=== PATIENT | male | born 1985 | race Caucasian/White ===

== ENCOUNTER → 2016-10-08 | Outpatient (CLI) | payer OTHER ==
[~2016-10-08] MED LIST: ALBUAER INH; AMT50 PO; AZEL0.15 NAE; GABA-113 PO; LIDO1PAD TOP
--- NOTE | 2016-10-08 09:44 | DIAGNOSTIC IMAGING REPORT ---
MRI LUMBAR SPINE W/O CONTRAST CLINICAL HISTORY: Low back pain with left leg radiculopathy. TECHNIQUE: Sagittal and axial T1, T2 and STIR images were obtained. COMPARISON STUDY: No previous studies for comparison. OBSERVATIONS: The vertebral bodies and posterior elements appear intact. There is no abnormal bony signal present to suggest a marrow replacement process. There is a small focus of decreased T1 and T2 signal involving the T12 vertebral body posteriorly. This is not felt to be of acute clinical significance. L1-2: No disc protrusions or extrusions. No evidence of spinal canal or neural foraminal compromise. L2-3: No disc protrusions or extrusions. No evidence of spinal canal or neural foraminal compromise. L3-4: No disc protrusions or extrusions. No evidence of spinal canal or neural foraminal compromise. L4-5: No disc protrusions or extrusions. No evidence of spinal canal or neural foraminal compromise. L5-S1: There is a small central disc protrusion. There is no significant thecal sac distortion. There is no foraminal stenosis. The conus medullaris and cauda equina appear normal. IMPRESSION: Small central disc protrusion at the L5-S1 level. Electronically signed by: Blue Stinson M.D. 10/08/2016 9:43 AM Dictated Date/Time: 10/08/2016 9:39 AM
== END | disposition home or self-care (01) ==
LOC: C.MRIBC 08:45
PROVIDERS: ATTEND Physical Medicine & Rehabilitation
DX: M54.10 Radiculopathy, site unspecified (principal); M51.27 Other intervertebral disc displacement, lumbosacral region

== ENCOUNTER → 2017-02-11 | Outpatient (CLI) | payer OTHER ==
--- NOTE | 2017-02-11 15:13 | DIAGNOSTIC IMAGING REPORT ---
FUSION CT SINUSES W/O HISTORY: R51 Headache. Several year history of nasal congestion refractory TECHNIQUE: Multiaxial CT images of the sinuses were performed and reformatted in the coronal plane without the use of intravenous contrast. Fusion sinus protocol was also obtained. COMPARISON STUDY: None. FINDINGS: The frontal sinuses and mastoid air cells are clear. Mild mucosal thickening within the sphenoid sinuses anteriorly. Mild mucosal thickening within the ethmoid air cells with partial opacification of a a few of the anterior ethmoid air cells. Mild right and moderate left polypoid mucosal thickening within the floors of the bilateral maxillary sinuses. No fluid levels within the paranasal sinuses. Mild rightward nasal septal deviation. Deformity of the nasal bones is consistent with an old, healed fracture. The orbits are unremarkable. The visualized brain is within normal limits. Bilateral ostiomeatal units are opacified. The orbital floors and lamina papyracea are intact. IMPRESSION: 1. [id number] mucosal thickening within the paranasal sinuses as described above. 2. Opacification of the bilateral ostiomeatal units. 3. No fluid levels within the paranasal sinuses. 4. Mild right nasal septal deviation. Electronically signed by: Jose Luis Stevens M.D. 02/11/2017 3:12 PM Dictated Date/Time: 02/11/2017 3:06 PM
== END | disposition home or self-care (01) ==
LOC: C.CTS 14:19
PROVIDERS: ATTEND Physician Assistant
DX: R51 Headache (principal); J34.9 Unspecified disorder of nose and nasal sinuses

== ENCOUNTER 2017-08-25 23:46 | Emergency (ER) | payer OTHER ==
[~2017-08-25] VITALS: Ht 172.7 cm; Wt 90.3 kg
[2017-08-25 23:51] VITALS: TEMP 36.6; Ht 172.7 cm; Wt 90.3 kg
[2017-08-25] MEDS ORDERED: IBUPROFEN 600 MG TAB PO STA (23:59)
[2017-08-26 02:18] VITALS: BP 122/71; PULSE 65; O2SAT 97
--- NOTE | 2017-08-26 02:47 | EMERGENCY ROOM VISIT NOTE ---
History First contact with patient: 23:55 Chief Complaint: ANKLE PAIN Stated Complaint: PAIN IN THE ANKLE MOVING UP LEG History of Present Illness The patient is a 32 year old male who presents to the Emergency Room with complaints of right ankle pain and swelling that has been reading up his leg for the past day. Patient had prior surgery to his left ankle. Dr. Aly did the surgery. This was a few years ago. No new injury. Patient is concerned he might have a blood clot. He states he noticed some swelling to the lateral ankle that is somewhat dissipated today. It is somewhat painful to walk on. Patient denies foot pain, lane pain, numbness, tingling, chest pain, dyspnea. No recent travel. No history of blood clots. Review of Systems An 10 system review of systems was completed with positives and pertinent negatives listed in the HPI. Past Medical/Surgical History Medical Problems: (1) Asthma Surgical Problems: (1) Male circumcision Family History Patient reports no known family medical history. Social History Smoking Status: Never Smoker Alcohol Use: none Drug Use: none Marital Status: in relationship Housing Status: lives with family Occupation Status: employed Current/Historical Medications Scheduled PRN Albuterol (Proventil Hfa), 2 PUFFS INH Q4 PRN for SOB/Wheezing Physical Exam Vital Signs Date Time Temp Pulse Resp B/P (MAP) Pulse Ox O2 Delivery O2 Flow Rate FiO2 08/26/17 02:18 65 18 122/71 97 08/26/17 01:51 47 18 120/52 95 Room Air 08/25/17 23:51 36.6 68 18 132/76 98 Room Air Physical Exam VITALS: Vitals are noted on the nurse's note and reviewed by myself. Vital signs stable. GENERAL: Pleasant male anxious appearing, in no acute distress, nondiaphoretic, well-developed well-nourished. SKIN: Capillary reflex less than 2 seconds. HEENT: Normocephalic. PERRLA. EOMI. Nares patent. Mucous membranes moist. Neck is supple without nuchal rigidity. HEART: Regular rate and rhythm without murmurs gallops or rubs. LUNGS: Clear to auscultation bilaterally without wheezes, rales or rhonchi. No retractions or accessory muscle use. MUSCULOSKELETAL: No gross musculoskeletal defects. No pedal edema. No calf tenderness. The left ankle is not swollen and is minimally tender over the lateral malleolus, but the skin is intact and there is no ligamentous instability. There is no fifth metatarsal tenderness. There is no tenderness over the rest of the foot. There is no calf or tibia/fibular tenderness. There is no visual deformity. The foot and toes are warm and well-perfused. Dorsalis pedis pulse 2+. Sensation to pain and light touch is intact. Capillary refill less than 3 seconds. NEURO: Patient was alert and oriented to person place and time. Normal sensation to light and sharp touch. No focal neurological deficits. Medical Decision & Procedures Medications Administered Medications (Trade) Dose Ordered Sig/Júnior Route Start Time Stop Time Status Last Admin Dose Admin Ibuprofen (Motrin Tab) 600 mg NOW STAT PO 08/25/17 23:59 08/26/17 00:02 DC 08/26/17 00:10 600 MG ED Course Prior records reviewed and summarized above. Triage Nursing notes reviewed. The patient's history was concerning for swelling and pain in the leg. Differential diagnosis: Etiologies such as DVT, musculoskeletal, infection, joint effusion, trauma, lymphedema, idiopathic, CHF, as well as others were entertained.. Physical examination: The physical examination revealed no signs of infection. Neurovascularly intact. ER treatment provided: Motrin On reassessment the patient felt better. Diagnostics interpreted by me: Imaging studies: Ultrasound negative for DVT Ankle x-ray with arthritic change without acute fracture or dislocation per my interpretation This appears to be consistent with left lower leg pain and swelling with unclear etiology. This could be arthritis or new sprain. Patient was neurovascularly and neurologically intact. No DVT. No new fracture. Patient was advised to follow-up with his orthopedic doctor in a few days or here in the ER sooner for severe pain, numbness, tingling, inability to walk, worsening signs or symptoms or as needed. Patient was offered crutches and declined. By the evaluation outlined above emergent etiologies such as DVT, septic joint, trauma, infection, CHF, as well as others were deemed relatively unlikely. The pt informed about the findings as listed above. All questions were answered and pleased with the treatment. Return instructions were outlined and the patient was discharged in stable condition. Case reviewed with my attending Referral: The patient was referred back to their orthopedic doctor for follow-up in 2 to 3 days for a recheck of the current condition. The chart was completed utilizing Dragon Speech voice recognition software. Grammatical errors, random word insertions, pronoun errors, and incomplete sentences are an occassional consequence of this system due to software limitations, ambient noise, and hardware issues. Any formal questions or concerns about the content, text, or information contained within the body of this dictation should be directly addressed to the physician process assistant for clarification. Medical Decision As above Medication Reconcilliation Current Medication List: was personally reviewed by me Blood Pressure Screening Patient's blood pressure: Normal blood pressure Impression Primary Impression: Pain in left lower leg Departure Information Dispostion Home / Self-Care Condition GOOD Forms HOME CARE DOCUMENTATION FORM, Work Instructions, Return To Work: 1 day IMPORTANT VISIT INFORMATION Patient Instructions My [facility] Additional Instructions Ibuprofen(Motrin, Advil) may be used for fever or pain. Use 600mg every six hours as needed. Take with food. Avoid using more than 2400mg in a 24 hour period. Do not use 2400mg per day for more than three consecutive days without physician direction. Prolonged inappropriate use can lead to stomach upset or ulcers. This medication can be taken if you need to drive, work, or perform activities which may be dangerous when taking narcotic pain medication. (AND/OR) Acetaminophen(Tylenol) may be used for fever or pain. Use 1000mg every six hours as needed. Avoid using more than 3000mg in a 24 hour period. This medication can be taken if you need to drive, work, or perform activities which may be dangerous when taking narcotic pain medication. Continue current medications. Return to the ER immediately for any numbness, tingling, severe pain, extreme swelling in the extremity or as needed. Call your Orthopedics tomorrow to arrange follow up. Work Instructions Return To Work: 1 day
--- NOTE | 2017-08-26 06:36 | DIAGNOSTIC IMAGING REPORT ---
ULTRASOUND L VENOUS DOPP LOWER EXT UNILAT CLINICAL HISTORY: Left leg swelling and pain. COMPARISON STUDY: No previous studies for comparison. FINDINGS: Real-time and color flow Doppler imaging were performed. Flow was seen within the femoral, popliteal and calf veins with no intraluminal thrombus demonstrated. The saphenous vein is patent. IMPRESSION: No evidence of left lower extremity DVT Electronically signed by: Blue Stinson M.D. 08/26/2017 6:34 AM Dictated Date/Time: 08/26/2017 6:34 AM
--- NOTE | 2017-08-26 07:23 | DIAGNOSTIC IMAGING REPORT ---
LEFT ANKLE 3 VIEWS CLINICAL HISTORY: Left ankle pain and swelling. No reported history of trauma. FINDINGS: 3 views of the left ankle are compared to study dated 10/12/2013. The skeletal structures are well mineralized. No fracture is seen. Chronic posttraumatic deformity and postoperative change is identified in the distal fibula. There is a remote avulsion injury from the medial malleolus, similar to previous. The ankle mortise is intact. No large joint effusion is identified. Mild soft tissue edema is present around the ankle. A tiny dorsal calcaneal enthesophyte is observed. IMPRESSION: 1. Soft tissue swelling with no radiographic evidence of acute left ankle fracture. 2. Chronic posttraumatic and postoperative change as above. Electronically signed by: Dustin Cramer M.D. 08/26/2017 7:22 AM Dictated Date/Time: 08/26/2017 7:20 AM
== END 2017-08-26 02:18 | disposition home or self-care (01) ==
LOC: C.EDB 23:47 → C.EDA 08-26 02:18
DX: M79.662 Pain in left lower leg (principal); J45.909 Unspecified asthma, uncomplicated

== ENCOUNTER 2024-02-02 09:33 | Observation (INO) ==
--- NOTE | 2024-01-28 15:28 | Anesthesiology Consultation ---
Date of Service January 28, 2024 Assessment & Plan (1) Encounter for pre-operative examination: Infectious disease screening: Per assessment on 01/28/24: No known recent infectious disease contacts. Patient was Covid positive 01/08/24 ([facility], PCR)- symptoms resolved except "slight congestion." Patient okay to proceed as scheduled without additional preop Covid testing or additional Covid contact precautions per protocol. Chart Review Chart Review: Acceptable Risk for Surgery (pending evaluation DOS) and Patient NOT seen in Pre Admission Testing History Surgery Operation Date: 02/02/24 10:10 Proposed Procedures p Vish Corey - Gilberto Dowd, TANYA s Extraction #15 and Fat Flap Closure of Opening, Excision of Large Cyst in the Left Sinus - Gilberto Dowd DMD Height/Weight Height: 5 ft 8 in Weight: 93.894 kg Allergies Allergy/AdvReac Type Severity Reaction Status Date / Time shrimp Allergy Severe Swelling Verified 01/28/24 14:26 of Lip/Tongue/Throat cat dander Allergy Intermediate Sneezing, Verified 01/28/24 15:22 congestion house dust mite Allergy Intermediate Sneezing, Verified 01/28/24 15:22 congestion Medications Home Medications Medication Instructions Recorded Confirmed Last Taken albuterol sulfate 2.5 mg/3 mL 2.5 mg inhalation Q4H PRN Wheezing 10/12/23 01/28/24 Unknown (0.083 %) solution for nebulization albuterol sulfate 90 mcg/actuation 1 - 2 puff inhalation QID PRN 10/12/23 01/28/24 Unknown aerosol inhaler Wheezing ibuprofen 200 mg tablet 400 mg PO Q6H PRN Pain 10/12/23 01/28/24 Unknown amoxicillin 875 mg-potassium 1 tab PO BID #20 tabs 01/21/24 01/28/24 Unknown clavulanate 125 mg tablet oxycodone-acetaminophen 5 mg-325 2 tab PO Q6H PRN pain #14 tabs 01/21/24 01/28/24 Unknown mg tablet (Percocet) Past Medical History Medical History Abscess, periapical, with sinus Asthma Bradycardia Per patient, he was told by his doctor this was "normal for him" Chronic sinusitis 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 Sifuentes/Sports Medicine for hx concussion/residual dizziness Hx of migraines Nasal septal deviation Past Family History Family History Other Allergies Asthma Hypertension No pertinent family history Denies family history of Heart disease Cancer Stroke Past Surgical History Surgical History History of ankle surgery left Social History Smoking Status: Never smoker Do You Dip or Chew Tobacco: No Hx Alcohol Use: Yes alcohol intake frequency: holidays/special occasions only Hx Substance Use: No substance use type: does not use Lab Results Anesthesia Preop Results Results Anesthesia Widget: WBC 9.37 K/ul (4.8-10.8) 01/21/24 Hgb 15.4 g/dl (14.0-18.0) 01/21/24 Hct 46.8 % (42.0-52.0) 01/21/24 Plt 310 K/uL (130-400) 01/21/24 Na 138 mmol/L (136-145) 01/21/24 K 4.0 mmol/L (3.5-5.1) 01/21/24 Cl 105 mmol/L (98-107) 01/21/24 CO2 24 mmol/L (21-32) 01/21/24 BUN 13 mg/dl (6-23) 01/21/24 Creat 0.94 mg/dl (0.6-1.4) 01/21/24 Glucose Level 103 mg/dl (70-99(Fasting)) H 01/21/24 Urine Color Yellow 01/08/24 Urine Appearance Clear (Clear) 01/08/24 Urine pH 6.0 (4.5-7.5) 01/08/24 Urine Specific [place] 1.017 (1.000-1.030) 01/08/24 Urine Protein Negative (Negative) 01/08/24 Urine Glucose (UA) Negative (Negative) 01/08/24 Urine Ketones Negative (Negative) 01/08/24 Urine Blood Negative (Negative) 01/08/24 Urine Nitrite Negative (Negative) 01/08/24 Urine Bilirubin Negative (Negative) 01/08/24 Urine Urobilinogen Negative (Negative) 01/08/24 Urine Leukocyte Esterase Negative (Negative) 01/08/24 Coronavirus OC43 (PCR) Not Detected (NotDetected) 01/08/24 Coronavirus HKU1 (PCR) Not Detected (NotDetected) 01/08/24 Coronavirus 229E (PCR) Not Detected (NotDetected) 01/08/24 COVID-19 PCR DETECTED (NotDetected) A 01/08/24 Coronavirus NL63 (PCR) Not Detected (NotDetected) 01/08/24 Testing Electrocardiogram Date: 10/12/23 SB with sinus arrhythmia at 59bpm. Possible LAE. V2 TWI. Chest X-Ray Date: 01/08/24 FINDINGS: An AP, portable, upright chest radiograph is compared to study dated 10/12/2023. The examination is degraded by portable technique and apical lordotic positioning. The cardiomediastinal silhouette is unremarkable. The lungs and pleural spaces are clear. No pneumothorax is seen. The bony thorax is grossly intact. IMPRESSION: No active disease in the chest. Other Testing Soft tissue neck CT Date: 01/21/24 Findings: The oropharynx, hypopharynx, larynx, and trachea are patent. Subcentimeter left submandibular nodes are seen. There is left maxillary sinus opacification. There is prominent periapical lucency about the left maxillary second molar which projects into the left maxillary sinus. The parotid glands, submandibular glands, and thyroid gland are unremarkable. Imaged portions of the brain parenchyma are unremarkable. The paranasal sinuses and mastoid air cells are normal in appearance. Impression: There is periapical abscess about the left second maxillary molar projecting the left maxillary sinus and resulting sinus disease. No soft tissue abscess is seen.
[2024-02-02] MEDS: LACTATED RINGER'S 1,000 ML IV SCH (09:55)
[2024-02-02] MEDS ORDERED: fentaNYL citrate PF 100 MCG/2 ML VIAL ONE (09:57)
[2024-02-02] MEDS ORDERED: MIDAZOLAM HCL 1 MG/ML 2ML VIAL ONE (09:57)
[2024-02-02] MEDS ORDERED: ONDANSETRON INJ 2 MG/ML 2 ML VIAL ONE (09:58)
[2024-02-02] MEDS ORDERED: GLYCOPYRROLATE 0.2 MG/ML VIAL ONE ×2 (09:58→11:40)
[2024-02-02] MEDS ORDERED: PROPOFOL IV EMULSION 10 MG/ML 20 ML VIAL IV ONE (09:58)
[2024-02-02] MEDS ORDERED: SUCCINYLCHOLINE CHLORIDE 20 MG/ML 10 ML VIAL IV ONE (09:58)
[2024-02-02] MEDS ORDERED: DEXAMETHASONE SOD INJ 4 MG/ML VIAL ONE (09:58)
[2024-02-02] MEDS: ALBUT/IPRATROP 3MG/0.5MG NEB 3 ML VIAL NEB STA (10:15)
[2024-02-02] MEDS ORDERED: fentaNYL citrate PF 100 MCG/2 ML VIAL IV PRN (10:26)
[2024-02-02] MEDS ORDERED: ATROPINE SULFATE 0.1 MG/ML 10ML SYR IV PRN (10:26)
[2024-02-02] MEDS ORDERED: HYDROmorphone INJ 2 MG/ML SYR/VIAL IV PRN (10:26)
[2024-02-02] MEDS ORDERED: ePHEDrine sulfate 50 MG/ML AMP IV PRN (10:26)
--- NOTE | 2024-02-02 10:34 | History & Physical Bridge Note ---
Date of Service February 02, 2024 History & Physical Bridge Note I have examined the patient, reviewed the History & Physical and in the interval since the performance of the History & Physical I have noted the following changes of clinical significance: no changes noted OK for the sinus procedure as planned left side
[2024-02-02] MEDS: ceFAZolin 3000MG 3,000 MG/72.5 ML BAG IV SCH (10:59)
[2024-02-02] MEDS ORDERED: ROCURONIUM BROMIDE 10 MG/ML 5 ML VIAL IV ONE (11:00)
[2024-02-02] MEDS ORDERED: KETAMINE HCL 10MG/ML SYR ONE (11:10)
[2024-02-02] MEDS: CHLORHEXIDINE GLUCONATE 0.12% 480 ML MT ONE (11:22)
[2024-02-02] MEDS ORDERED: KETOROLAC 30 MG/ML VIAL ONE (11:31)
[2024-02-02] MEDS: BUPIVACAINE/EPINEPHRINE 0.5% 1:200,000 1.8 ML CARP ONE (11:40)
[2024-02-02] MEDS ORDERED: NEOSTIGMINE METHYLSULFATE 1 MG/ML 10ML VIAL ONE (11:40)
[2024-02-02] MEDS ORDERED: MoRPHine SULFATE 2 MG/ML CARP IV PRN (11:44)
[2024-02-02] MEDS ORDERED: oxyCODONE HCL IR 5 MG TAB (IMMEDIATE RELEASE) PO PRN (11:44)
[2024-02-02] MEDS ORDERED: MoRPHine SULFATE 4 MG/ML 1 ML CARP\\VIAL IV PRN (11:44)
[2024-02-02] MEDS ORDERED: SUGAMMADEX SODIUM 200 MG/2 ML VIAL IV ONE (11:49)
--- NOTE | 2024-02-02 11:53 | Post Operative Brief Note ---
PG Immediate Post Op with CF Date of Surgery February 02, 2024 Pre & Post Diagnosis Operation Date: 02/02/24 10:10 Pre-Op Diagnosis: Fistula of Maxillary Sinus, Cyst of Paranasal Sinus Post-Op Diagnosis: Fistula of Maxillary Sinus, Cyst of Paranasal Sinus I identified the patient and participated in the time-out.: Yes Procedure Operation Date: 02/02/24 10:10 Actual Procedures p Left Side Wahl Madhav(Left) - Gilberto Dowd DMD s Extraction #15 and Fat to Close Sinus Fistula(Left) - Gilberto Dowd DMD Surgeon Gilberto Dowd DMD Hall Worker NONE Estimated Blood Loss 2 Findings Consistent with Post-Op Diagnosis INFECTION AND FISTULA LEFT MAXILLARY SINUS Specimens Specimen Description: A: Cyst of Maxillary Sinus Culture set #1 Left maxillary abscess Anesthesia Type General Complications NONE Disposition Accompanied Patient To Recovery: Yes
--- NOTE | 2024-02-02 12:13 | Operative Report ---
PG Post Operative Report Pre & Post Diagnosis Operation Date: 02/02/24 10:10 Pre-Op Diagnosis: Fistula of Maxillary Sinus, Cyst of Paranasal Sinus Post-Op Diagnosis: Fistula of Maxillary Sinus, Cyst of Paranasal Sinus I identified the patient and participated in the time-out.: Yes Procedure Operation Date: 02/02/24 10:10 Actual Procedures p Left Side Wahl Madhav(Left) - Gilberto Dowd DMD s Extraction #15 and Fat to Close Sinus Fistula(Left) - Gilberto Dowd DMD Surgeon Gilberto Dowd DMD Secretary To The Vice President NONE Estimated Blood Loss 2 Findings Consistent with Post-Op Diagnosis Specimens cyst left sinus Anesthesia Type General Complications none Disposition Accompanied Patient To Recovery: Yes Indications infected cyst and associated failed root canal treated tooth # 15 Description of Procedure PG Post Operative Report Pre & Post Diagnosis Operation Date: 01/19/24 10:30 Pre-Op Diagnosis: Maxillary Sinus Cyst, Chronic Sinus Infection Post-Op Diagnosis: Maxillary Sinus Cyst, Chronic Sinus Infection I identified the patient and participated in the time-out.: Yes Procedure Operation Date: 02/02/24 10:30 Actual Procedures p Wahl Madhav to Remove Polyps Left Maxilla Sinus, Excision Cyst Left Lateral Maxilla(Left) - Gilberto Dowd DMD Surgeon Gilberto Dowd DMD Secretary To The Vice President none Estimated Blood Loss Findings Consistent with Post-Op Diagnosis Anesthesia Type General Complications NONE Disposition Accompanied Patient To Recovery: Yes Indications LARGE CYST IN THE LEFT MAXILLARY SINUS WITH INFECTION AND SWELLING/PAIN Description of Procedure Diagnoses Chronic maxillary sinusitis J32.0 / J34.89 Acute sinusitis treated with antibiotics in the past 60 days J01.90 Cyst of maxillary sinus J34.1 CPT Codes EXPLORE SINUS REMOVE POLYPS CPT 64925 ([id number]) REPAIR ORAL MAXILLARY FISTULA CPT 81687 BUCCAL FAT GRAFTING TO CLOSE DEFECT CPT 41914 EXTRACTION OF # 15 [id number] Once cleared for surgery general anesthesia was achieved, the eyes were protected by the anesthesia dept criteria.A time out was take for patient ID, antibiotics, equipment and position verification once all agreed the procedure began.Local anesthesia was given into each area using Marcaine with a vasoconstrictor ( 1.8 ml per site).A throat pack was placed after the oral cavity was irrigated with saline. Once a surgical level of anesthesia was obtained the local anesthesia was given time for the blocks the surgery was started. Wahl Madhav of left sinus, curetment of polyp and buccal fat graft to close large oral sinus opening UPPER LEFT INFECTED CYST IN SINUS I turned my attention to the upper left side. A draining fistula was present with pus from the left maxillary sinus WITH A VERY LARGE RADIOLUCENT CYST. It was noted that pus was draining between his teeth WITH PAIN AND SWELLING and was treated with antibiotics by his dentist. The problem did not resolve and was referred for further evaluation to my office. The CT confirmed a large radiolucent cyst w/in the left maxillary sinus . I raised a large mucoperiosteal flap from the tuberosity anterior to area # 11. I scored the periosteum to allow for flap relaxation and a water tight tension free closure. I was able to relax the tissue enough to allow for a tension free closure. Left sinus fistula closure with buccal fat flap The sinus fistula was now debrided and prepared for closure.The tuberosity was very swollen. The buccal wall of the sinus was exposed. A window opening into the sinus was made and the infected polyps were curetted out-- the sinus was filled with a significant amount of infected tissues. The sinus was irrigated and found to be devoid of any infected or hyperplastic lining. The buccal fat pad was teased out carefully and slightly advanced to close the large floor openings. I now adjusted and advanced the buccal fat graft and sutured it into place with a 4-0 Vicryl suture. This closed the large floor defect and lateral wall sinus opening with a healthy thick fat pad. I now advanced the large buccal flap and with a double layered closure using 4-0 Vicryl suture and 2-0 Chromic. The sinus opening was closed with the intervening fat graft --primary closure tension free flap closure over the large sinus opening was achieved. A water tight closure was obtained on both sides. I inspected the sites to insure all bleeding was controlled. I removed the throat pack and suctioned the throat. A gauze pressure dressings was placed All instrument and sponge count was correct. patient was allowed to awake from the anesthesia. Once full awake the anesthesia tube was removed and the patient was taken to the recovery room with all vital sign stable The patient tolerated the surgery very well. I will follow the patient in my office, Rx and sinus instructions will be given upon discharge. About 2 hours after the procedure I got a call from the [facility] regarding Thai he was dizzy could sit up or take fluids. It was decided to give him another hour to recover. After an addition hour Thai was no better and it was decided that he was not able to be discharged as planned. It was decided to admit for observation tonight and plan for discharge tomorrow. I wrote the transfer orders for observation. I attest to the content of the Intraoperative Record and any orders documented therein. Any exceptions are noted below. I attest to the content of the Intraoperative Record and any orders documented therein. Any exceptions are noted below.
[2024-02-02] MEDS: ONDANSETRON INJ 2 MG/ML 2 ML VIAL IV PRN (12:49)
--- NOTE | 2024-02-02 12:50 | Anesthesiology Progress Note ---
Date of Service February 02, 2024 Anesthesia Post Procedure Vital Signs Vital Signs: Temp Pulse Pulse Resp BP Pulse Ox O2 Del Method 02/02/24 12:35 36.1 C L 79 18 137/86 95 Room Air 02/02/24 12:25 63 18 148/88 H 95 Room Air 02/02/24 12:15 91 H 15 138/95 99 Oxymask 02/02/24 12:07 36.0 C L 92 H 15 145/92 H 98 Oxymask 02/02/24 10:15 62 15 98 Room Air 02/02/24 09:51 36.4 C L 54 L 18 127/89 98 Room Air O2 Flow Rate 02/02/24 12:35 02/02/24 12:25 02/02/24 12:15 5 02/02/24 12:07 5 02/02/24 10:15 02/02/24 09:51 Pain Intensity Left Upper Chest: Pain Intensity: 5 Left Upper Mouth: Pain Intensity: 8 Transfer of Care Handoff Completed per policy Notes Mental Status: alert / awake / arousable and participated in evaluation Patient Amnestic to Procedure: Yes Nausea / Vomiting: adequately controlled Pain: adequately controlled Airway Patency, RR, SpO2: stable & adequate BP & HR: stable & adequate Hydration State: stable & adequate Anesthetic Complications: no major complications apparent and Pt Satisfied with anesthetic care
[2024-02-02] MEDS: HYDROCODONE/ACETAMOPHEN 5/325MG TAB PO PRN (17:41)
[2024-02-02] MEDS: ceFAZolin 2000MG 2,000 MG/15 ML SYR IV SCH (17:42)
--- NOTE | 2024-02-02 18:03 | Electrocardiogram Report ---
Test Reason : Blood Pressure : */* mmHG Vent. Rate : 51 BPM Atrial Rate : 51 BPM P-R Int : 148 ms QRS Dur : 76 ms QT Int : 446 ms P-R-T Axes : 66 48 36 degrees QTcB Int : 411 ms Sinus bradycardia with sinus arrhythmia Otherwise normal ECG When compared with ECG of 12-Oct-2023 00:48, No significant change was found Confirmed by Robert Mcnamara ([id number]) on 02/02/2024 6:03:17 PM Referred By: Gilberto Dowd Confirmed By: Robert Mcnamara
--- NOTE | 2024-02-03 08:49 | Oral/Maxillofacial Progress Nt ---
Date of Service February 03, 2024 Assessment & Plan Admission and Anticipated Discharge Date Admission Date: February 02, 2024 Subjective I received a tiger text this AM regarding Thai. He is still dizzy, vertigo, and wobbly s/p GA and sinus surgery. Not able to get out of bed or walk w/o assistance. Still in a lot of pain. Very high anxiety level going into the surgery and anesthesia! hTai was this way when he first was referred by the ER last week. He did improve prior to the surgery once I controlled his pain and started him on antibiotics. I [facility] for help with management. I will see Thai today and plan continued management. Results & Data Vital Signs (Past 12 Hours) Vital Signs Temp Pulse Resp BP BP Pulse Ox O2 Del Method 02/03/24 07:54 36.5 C 63 20 131/79 97 Room Air 02/03/24 07:04 36.6 C 57 L 18 121/69 93 Room Air 02/03/24 05:51 37.0 C 59 L 18 120/69 97 Room Air 02/02/24 22:49 36.8 C 72 14 126/78 97 Room Air PG Care Time/CCT Total # of Minutes Spent Total Time Spent with Patient: Total time spent is greater than 50% in coordination of care (as documented) at patient's floor/unit and/or counseling patient: Coding Level of Care Code None
[2024-02-03] MEDS: LORazepam 2 MG/1 ML VIAL IV STA (10:05)
--- NOTE | 2024-02-03 10:26 | Hospitalist Consultation ---
Date of Consultation February 03, 2024 Assessment & Plan (1) Vertigo: Patient is currently post op day #1 status post removal of left maxillary sinus cyst and repair of left sinus tract between the left upper jaw and left maxillary sinus with Dr. Dowd Consulted due to ongoing post imbalance since patient woke from her's procedure on 02/02/2024 Patient reports a history of vertigo with significant reproducible symptoms with any movement of his lower eyes Unsure if the mild decrease sensation on the left side of his cheek is due to swelling and ice pack placement with versus nerve damage at this time Cannot rule out the hydrocodone possibly can symptoms at this time From 25 mg p.o. meclizine now No narcotic pain medications and start scheduled Toradol and acetaminophen, Dr. Dowd is in agreement with these changes Will reevaluate this afternoon to see if symptoms improve with meclizine, proving will workup Fall/aspiration precautions Diet per primary team recommendations Will obtain CBC with differential and CMP now to monitor for other possible pathologies of his symptoms Medicine will continue to follow, please reach out with any other questions or concerns (2) Maxillary sinus cyst: DVT prophylaxis, IV fluids, and perioperative antibiotics per the primary team (3) Asthma: Will order patient albuterol inhaler now as he feels he is starting to experience wheezing and increased anxiety due to not having his inhaler Confirm with primary team that there are no contraindications for inhaler use at this time Plan The patient was discussed with Dr. Willoughby at the time of the consult Supervising Physician Co-Signing Physician Notes I personally saw and examined the patient. I verified all hand points and agree with Dexter Reynolds PA-C with the following exceptions and/or additions: 39 year old male POD#1 Left Side Wahl Madhav, Extraction #15 and Fat to Close Sinus Fistula performed by Dr Dowd. Developed vertigo sensation after procedure. Significantly improved with meclizine given by JENIFER earlier in the day O/E HS RRR, no murmurs, Chest CTAB, Abdo SNT, EOMI intact without nystagmus A/P Vertigo - suspect BPPV given episodic nature that completely resolves but also being investigated for concussion. Either way meclizine has significantly helped and will continue this as needed. History of concussion - recommend limiting use of opiates and therefore will use acetaminophen and toradol regularly to reduce need for oxyodone a/p sinus surgery - antibiotics per surgery recommendations History of Present Illness Reason for Consultation: Post-operative Vertigo and anxiety Requesting Physician: Gilberto Dowd DMD Attending Physician: Dr. Danny Willoughby History of Present Illness Thai is a 39-year-old male with a past medical history significant for asthma, allergic rhinitis, migraine, and anxiety who was admitted to [facility] on 02/02/[address] Dowd in for scheduled surgery to remove left cyst with periapical abscess with associated sinus track into the left maxillary sinus. Per the operative report from 02/02/2024 estimated blood loss was 2 cc, patient underwent general anesthesia, and there were no reported intraoperative complications. The patient was initially scheduled for discharge today but upon waking this morning had significant dizziness and imbalance and ambulation trial occurred. Review administered medications from today show patient to have received 1 tab of hydrocodone/acetaminophen approximately 0711. Patient was initially ordered 1 mg IV Ativan as well around 10 AM but the patient reportedly refused this. We are consulted for further evaluation and treatment of the patient's dizziness/vertigo and ambulatory function. Review of the patient's vitals from today show him to have remained stable. Patient was sitting in bed in no acute distress at the time of exam, currently with an ice pack on the bilateral cheeks and resting his head on the pillow to the left side of his body. He appears fatigued but is able to follow commands and have a productive conversation. States that since waking from his procedure on 02/01 he has been experiencing significant vertigo/lightheadedness with any movement of his head or eyes. Denies the room spinning but just feels very dizzy and off balance. Confirms he has a previous history of vertigo and states that he is being followed by [facility] sports medicine due to multiple concussions in the past. When asked, he confirms that this feels similar to his previous episodes of vertigo but much more severe. No current symptoms while at rest at the beginning of exam. States that he is still experiencing a significant amount of pain in his surgical site. Denies the hydrocodone/acetaminophen making his vertigo worse but states "it makes you very sleepy". When asked, he feels as though left side of his face may be a little numb compared to the right. Denies recent fever, chills, chest pain, shortness of breath, cough, nausea/vomiting, abdominal pain, dysuria/hematuria, diarrhea/melena, lower extremity swelling, paresthesias in the bilateral upper or lower extremities, unilateral weakness, and recent trauma. Please refer to Dr. Willoughby's attestation for any changes to treatment plan Allergies Allergy/AdvReac Type Severity Reaction Status Date / Time shrimp Allergy Severe Swelling Verified 02/02/24 09:45 of Lip/Tongue/Throat cat dander Allergy Intermediate Sneezing, Verified 02/02/24 09:45 congestion house dust mite Allergy Intermediate Sneezing, Verified 02/02/24 09:45 congestion Home Medications Medication Instructions Recorded Confirmed Type albuterol sulfate 2.5 mg/3 mL 2.5 mg inhalation Q4H PRN Wheezing 10/12/23 02/02/24 History (0.083 %) solution for nebulization albuterol sulfate 90 mcg/actuation 1 - 2 puff inhalation QID PRN 10/12/23 02/02/24 History aerosol inhaler Wheezing ibuprofen 200 mg tablet 400 mg PO Q6H PRN Pain 10/12/23 02/02/24 History amoxicillin 875 mg-potassium 1 tab PO BID #20 tabs 01/21/24 02/02/24 Rx clavulanate 125 mg tablet oxycodone-acetaminophen 5 mg-325 2 tab PO Q6H PRN pain #14 tabs 01/21/2408/22 Rx mg tablet (Percocet) amoxicillin 875 mg-potassium 1 tab PO Q12H sinus infection #20 02/02/24 Rx clavulanate 125 mg tablet tabs hydrocodone 5 mg-acetaminophen 325 1 tab PO Q4H PRN pain #14 tabs 02/02/24 Rx mg tablet ondansetron HCl 8 mg tablet 8 mg PO Q8H PRN nausea and 02/02/24 Rx vomiting #10 tabs Patient History Medical History (Updated 02/03/24 @ 11:15 by Dexter Reynolds PA-C) Abscess, periapical, with sinus Bradycardia Per patient, he was told by his doctor this was "normal for him" Nasal septal deviation Hx of migraines Hx of concussion Multiple, most recent 04/[address] Sifuentes/Sports Medicine for hx concussion/residual dizziness Asthma History of COVID-19 01/08/24 ([facility], PCR)- symptoms resolved except "slight congestion" Fistula of maxillary sinus Chronic sinusitis Cyst of paranasal sinus Surgical History (Updated 02/02/24 @ 12:48 by Meg Weber RN) Hx of oral surgery (02/02/24) p Left Side Wahl Madhav(Left) - Gilberto Dowd DMD s Extraction #15 and Fat to Close Sinus Fistula(Left) - Gilberto Dowd DMD History of ankle surgery left Family History Other Allergies Asthma Hypertension No pertinent family history Denies family history of Heart disease Cancer Stroke Social History Smoking Status: Never smoker Second Hand Exposure: No; Do You Dip or Chew Tobacco: No; Tobacco Cessation Education Requested by Patient: No Hx Alcohol Use: Yes Hx Substance Use: No Preferred Language: American Communication Ability: Effective Turkey Pinner Required: No Beliefs That Will Affect Care: None marital status: Single Current Living Situation: Significant Other current occupational status: unemployed Other Information That Helps Us Care for You: No Feels Safe at Home: Yes Safety Concerns: Feels Safe At This Time Assistive Devices: None Physical Exam Physical Exam: Physical Exam: General: In no acute distress, stated age, non-toxic appearing, fatigued HEENT: Normocephalic, no acute trauma on inspection of the face but does have mild swelling of the left cheek, no scleral icterus, pupils around round, symmetrical, and reactive to light, moist mucus membranes, patient with packing currently in the left upper jaw without signs of bleeding or drainage Chest/Pulm: No respiratory distress, symmetrical chest expansion, clear breath sounds throughout Cardiac: RRR, no murmurs noted Abdomen: Negative for ascites and bruising, normoactive bowel sounds, soft, non-tender to palpation throughout Musculoskeletal: Symmetrical and without signs of acute trauma, upper and lower extremities with full ROM, no atrophy, spasticity, or flaccidity Extremities: Radial, dorsalis pedis, and posterior tibial pulses are intact and symmetrical, no edema noted in the BL LE's Skin: Warm, dry, no rashes , lesions, or scars noted Neuro: Alert and oriented to person, place, month, year, and president, no focal defects, CN II-XII tested patient experiences significant vertigo symptoms with extraocular movements, subjective reduced sensation on the left cheek compared to right on palpation, negative cerebellar and bilateral upper extremities no tremors noted Psych: No acute distress, significantly fatigued but calm and cooperative during the exam Results & Data Results & Data Vital Signs (Past 12 Hours) Vital Signs Temp Pulse Resp BP BP Pulse Ox O2 Del Method 02/03/24 07:54 36.5 C 63 20 131/79 97 Room Air 02/03/24 07:04 36.6 C 57 L 18 121/69 93 Room Air 02/03/24 05:51 37.0 C 59 L 18 120/69 97 Room Air 02/02/24 22:49 36.8 C 72 14 126/78 97 Room Air PG Care Time/CCT Total # of Minutes Spent Total Time Spent with Patient: Total time spent is greater than 50% in coordination of care (as documented) at patient's floor/unit and/or counseling patient: [place] [address] IN/OBS CONSULT LVL 4,60M Patient Type New Medical Decision Making High Complexity Diagnoses Vertigo R42 Maxillary sinus cyst J34.1 Asthma J45.909
[2024-02-03] MEDS ORDERED: ALBUTEROL HFA 8 GM INHALER INH PRN (11:13)
[2024-02-03] MEDS: MECLIZINE HCL 25 MG TAB PO STA (11:20)
[2024-02-03 11:54] LABS: Basophils # (auto) 0.04 K/uL (0.00-0.20); Basophils % (auto) 0.2 %; Eosinophils # (auto) 0.01 K/uL (0.00-0.50); Eosinophils % (auto) 0.1 %; Hematocrit (blood only) 41.5 % (42.0-52.0); Hemoglobin 13.6 g/dl (14.0-18.0); Immature Granulocytes # (auto) 0.15 K/uL (0.01-0.20); Immature Granulocytes % (auto) 0.8 %; Lymphocytes # (auto) 1.37 K/uL (1.20-3.40); Lymphocytes % (auto) 7.6 %; Mean Corpuscular Hemoglobin 26.5 pg (25.0-34.0); Mean Corpuscular Hgb Conc 32.8 g/dL (32.0-36.0); Mean Corpuscular Volume 80.7 fL (80.0-100.0); Mean Platelet Volume 11.2 fL (9.4-12.4); Monocytes # (auto) 1.35 K/uL (0.11-0.59); Monocytes % (auto) 7.5 %; Neutrophils % (auto) 83.8 %; Platelet Count 293 K/uL (130-400); RDW Coefficient of Variation 13.2 % (11.5-14.5); RDW Standard Deviation 38.3 fL (36.4-46.3); Red Blood Count 5.14 M/uL (4.70-6.10); White Blood Count 17.92 K/ul (4.8-10.8)
[2024-02-03 12:05] LABS: Albumin Globulin Ratio 1.3 (0.9-2); BUN Creatinine Ratio 13.8 (10-20); Bilirubin,Total 0.6 mg/dl (0.2-1.0); Est GFR (African American) 126.9 ml/min; Est GFR (Non-African American) 109.5 ml/min; Globulin 3.1 gm/dl (2.5-4.0); Potassium 4.2 mmol/L (3.5-5.1); Total Protein 7.1 gm/dl (6.0-8.3)
[2024-02-03] MEDS: ACETAMINOPHEN 325 MG TAB PO STA (12:16)
[2024-02-03] MEDS: PANTOprazole 40 MG TAB PO SCH (12:18)
[2024-02-03] MEDS: KETOROLAC TROMETHAMINE 15 MG/ML VIAL IV ONE (12:32)
[2024-02-03] MEDS: ceFAZolin 2000MG 2,000 MG/15 ML SYR IV SCH (18:15)
[2024-02-03] MEDS: ACETAMINOPHEN 325 MG TAB PO SCH (18:25)
[2024-02-03] MEDS: KETOROLAC TROMETHAMINE 15 MG/ML VIAL IV SCH (18:25)
[2024-02-03 19:46] VITALS: O2SAT 98
[2024-02-03] MEDS ORDERED: MECLIZINE HCL 25 MG TAB PO PRN (20:02)
[2024-02-04 07:18] VITALS: PULSE 51; RESP 16; TEMP 97.9
[2024-02-04] MEDS: oxyCODONE HCL IR 5 MG TAB (IMMEDIATE RELEASE) PO PRN (09:22)
--- NOTE | 2024-02-04 11:14 | Hospitalist Progress Note ---
Date of Service February 04, 2024 Assessment & Plan (1) Vertigo: Plan: Patient underwent left maxillary sinus cyst and repair of left sinus tract between left upper jaw and left maxillary sinus with Dr. Dowd on 02/02/24. Our service consulted due to ongoing post imbalance since patient awoke from procedure. -Switched pain medications from narcotics to scheduled Toradol and acetaminophen -Would recommend avoiding narcotics if possible. Patients symptoms resolved following cessation of narcotics. -Meclizine 25mg PO prn upon discharge. -Diet per primary team -reviewed CBC, leukocytosis of 17.92. Unsure of what this was before surgery antibiotics per primary team 02/03: patient reports no further feeling dizzy Okay to return home on antibiotics from a medical standpoint. Please call with questions or concerns. (2) Maxillary sinus cyst: Plan: DVT prophylaxis, IV fluids, and perioperative antibiotics per the primary team (3) Asthma: Plan: -Ordered albuterol inhaler due to wheezing and increased anxiety over not having inhaler. Admission and Anticipated Discharge Date Admission Date: February 02, 2024 Subjective Patient seen and examined this morning. Patient doing well today. He reports no dizziness. He did complain of mouth pain but denied any other complaints. He feels he is ready to return home today. Physical Exam Constitutional: WD/WN, vitals as above ENMT: Normocephalic, no acute trauma on inspection of the face but does have mild swelling of the left cheek, no scleral icterus, pupils around round, symmetrical, and reactive to light, moist mucus membranes Respiratory: normal respiratory effort, lungs clear to auscultation Cardiovascular: RRR, no murmur, no edema Skin: no rashes, warm and dry Neurologic: PERRL, EOMI, accommodation nl, no face palsy, no dysarthria Psychiatric: A+Ox3, euthymic affect Results & Data Results & Data Vital Signs (Past 12 Hours) Vital Signs Temp Pulse Resp BP O2 Del Method 02/04/24 07:16 36.6 C 51 L 16 112/64 Room Air PG Care Time/CCT Total # of Minutes Spent Total Time Spent with Patient: Total time spent is greater than 50% in coordination of care (as documented) at patient's floor/unit and/or counseling patient: Coding Level of Care Code 05851 SUB INP/OBS CARE 2/35MIN Diagnoses Vertigo R42 Maxillary sinus cyst J34.1 Asthma J45.909
--- NOTE | 2024-02-04 11:53 | Oral/Maxillofacial Progress Nt ---
Date of Service February 04, 2024 Assessment & Plan Admission and Anticipated Discharge Date Admission Date: February 02, 2024 Subjective Doing much better this AM, pain well controlled. Surgical site looks good with good closure of the sinus opening. Reviewed wound care, diet, home care. Follow up set up for Feb 08 at 11:15 am We will check with medicine regarding 25 mg p.o. meclizine as prescription for home use. Suggested to avoid the Vicodin and use Tylenol/Motrin OK for D/C today Results & Data Vital Signs (Past 12 Hours) Vital Signs Temp Pulse Resp BP O2 Del Method 02/04/24 08:30 Room Air 02/04/24 07:16 36.6 C 51 L 16 112/64 Room Air PG Care Time/CCT Total # of Minutes Spent Total Time Spent with Patient: Total time spent is greater than 50% in coordination of care (as documented) at patient's floor/unit and/or counseling patient: Coding Level of Care Code 95708 SUB INP/OBS CARE 1/25MIN
[2024-02-04 12:55] VITALS: BP 126/78
--- NOTE | 2024-02-06 11:40 | Discharge Summary ---
Date of Service February 06, 2024 Admission HPI Per Admitting Provider Infected cyst left sinus Pain, dizziness and vertigo Description of Procedure Diagnoses Chronic maxillary sinusitis J32.0 / J34.89 Acute sinusitis treated with antibiotics in the past 60 days J01.90 Cyst of maxillary sinus J34.1 CPT Codes EXPLORE SINUS REMOVE POLYPS CPT 80038 ([id number]) REPAIR ORAL MAXILLARY FISTULA CPT 77158 BUCCAL FAT GRAFTING TO CLOSE DEFECT CPT 34948 EXTRACTION OF # 15 [id number] Wahl Madhav of left sinus, curetment of polyp and buccal fat graft to close large oral sinus opening UPPER LEFT INFECTED CYST IN SINUS Left sinus fistula closure with buccal fat flap About 2 hours after the procedure I got a call from the [facility] regarding Thai he was dizzy could sit up or take fluids. It was decided to give him another hour to recover. After an addition hour Thai was no better and it was decided that he was not able to be discharged as planned. It was decided to admit for observation tonight and plan for discharge tomorrow. I wrote the transfer orders for observation. It took Thai about 48 hours to get back on his feet after the GA and the procedure The day after the procedure is was still not able to stand w/o dizziness the medical team helped with adding medication fro the vertigo/dizziness We stopped the Vicodin and encouraged him to take fluids. The next day he was starting to improve was able to sit in bed and felt well enough to be discharged. Feb 03 Doing much better this AM, pain well controlled. Surgical site looks good with good closure of the sinus opening. Reviewed wound care, diet, home care. Follow up set up for Feb 08 at 11:15 am We will check with medicine regarding 25 mg p.o. meclizine as prescription for home use. Suggested to avoid the Vicodin and use Tylenol/Motrin OK for D/C today Discharge Data Consultations 02/03/24 07:30 Consult Hospitalist Routine 02/03/24 08:36 Consult Hospitalist Stat Procedures Performed Operation Date: 02/02/24 10:10 Actual Procedures p Left Side Wahl Madhav(Left) - Gilberto Dowd DMD s Extraction #15 and Fat to Close Sinus Fistula(Left) - Gilberto Dowd DMD Coding Level of Care Code 03720 IN/OBS DISCH 30 MIN/LESS
== END 2024-02-04 14:39 | disposition home or self-care (01) ==
LOC: ASU 09:33 → INTOOBSV 15:09 → 3E 15:09